=== PATIENT | female | born 1940 | race Caucasian/White ===

== ENCOUNTER 2020-08-10 10:53 | Observation (INO) | payer MEDICARE, MEDICAID ==
[2020-08-10] MEDS ORDERED: Sodium Chloride 0.9% 10 ML Syringe FLUSH PRN (10:55)
[2020-08-10 11:22] LABS: CHLORIDE,CL 99 mmol/L (98-107); SODIUM,NA 135 mmol/L (136-145)
--- NOTE | 2020-08-10 15:42 | EDM.PDOC ---
ED HPI GENERAL MEDICAL PROBLEM - General Chief Complaint: Trauma Stated Complaint: trauma, fall Time Seen by Provider: 08/10/20 10:54 Source of Information: Reports: Patient History Limitations: Reports: Other (does not remember falling) - History of Present Illness INITIAL COMMENTS - FREE TEXT/NARRATIVE: Patient brought to ER for evaluation after falling outside of local bank. Denies LOC. Has abrasion/laceration right pentecostalism. Patient says that she trips/falls reasonable frequently. No complaint other than headache and contusion on head. 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: - Past Surgical History HEENT Surgical History: Reports: Tonsillectomy GI Surgical History: Reports: Appendectomy Social & Family History - Tobacco Use Tobacco Use Status *Q: Never Tobacco User Second Hand Smoke Exposure: No - Caffeine Use Caffeine Use: Reports: Tea - Recreational Drug Use Recreational Drug Use: No Review of Systems - Review of Systems Review Of Systems: See Below Constitutional: Reports: No Symptoms Eyes: Denies: Blurred Vision, Decreased Acuity, Foreign Body Sensation, Photophobia, Tunnel Vision, Vision Change Ears: Reports: No Symptoms Nose: Reports: No Symptoms Mouth/Throat: Reports: No Symptoms Respiratory: Reports: No Symptoms Cardiovascular: Reports: No Symptoms GI/Abdominal: Reports: No Symptoms Genitourinary: Reports: No Symptoms Musculoskeletal: Reports: No Symptoms. Denies: Neck Pain Skin: Reports: Wound Neurological: Reports: Headache. Denies: Paresthesia, Seizure, Syncope, Tingling, Trouble Speaking, Change in Speech Psychiatric: Reports: No Symptoms ED EXAM, GENERAL - Physical Exam Exam: See Below Exam Limited By: No Limitations General Appearance: Alert, No Apparent Distress, Thin Eye Exam: Bilateral Eye: EOMI, PERRL Ears: Normal External Exam, Normal Canal, Hearing Grossly Normal Nose: No: Nasal Deformity, Nasal Swelling, Nasal Drainage Throat/Mouth: Normal Lips, Normal Voice Head: Other (abrasion/small laceration/hematoma right side forehead) Neck: Normal Inspection, Supple, Non-Tender, Full Range of Motion. No: Tender Lateral, Tender Midline Respiratory/Chest: No Respiratory Distress, Lungs Clear, Normal Breath Sounds, No Accessory Muscle Use, Chest Non-Tender Cardiovascular: Normal Peripheral Pulses, Regular Rate, Rhythm, No Edema, No Murmur GI/Abdominal: Normal Bowel Sounds, Soft, Non-Tender, No Distention (Female) Exam: Deferred Rectal (Female) Exam: Deferred Back Exam: No: CVA Tenderness (L), CVA Tenderness (R), Muscle Spasm, Paraspinal Tenderness, Vertebral Tenderness Extremities: Non-Tender, No Pedal Edema, Normal Capillary Refill Neurological: Alert, Oriented, No Motor/Sensory Deficits Psychiatric: Normal Affect, Normal Mood Skin Exam: Warm, Dry, Wound/Incision (right side forehead) Course - Vital Signs Last Recorded V/S: Last Vital Signs Temp 36.8 C 08/10/20 13:58 Pulse 67 08/10/20 13:58 Resp 16 08/10/20 13:58 BP 127/79 08/10/20 13:58 Pulse Ox 97 08/10/20 14:00 - Orders/Labs/Meds Orders: Active Orders 24 hr Category Date Time Status C-Spine [Cervical Spine wo Cont] [CT] Stat Exams 08/10/20 10:55 Taken Head wo Cont [CT] Stat Exams 08/10/20 10:55 Taken Sodium Chloride 0.9% [Saline Flush] Med 08/10/20 10:55 Active 10 ml FLUSH ASDIRECTED PRN Saline Lock Insert [OM.PC] Stat Oth 08/10/20 10:55 Ordered Medication Orders Sodium Chloride (Sodium Chloride 0.9% 10 Ml Syringe) 10 ml FLUSH ASDIRECTED PRN PRN Reason: Keep Vein Open Labs: Laboratory Tests 08/10/20 08/10/20 08/10/20 Range/Units 10:55 10:55 10:55 WBC 4.1 (4.0-10.2) K/uL RBC 4.30 (3.77-5.09) M/uL Hgb 12.4 (11.7-15.5) g/dL Hct 36.6 (34.0-46.0) % MCV 85.1 (84.0-98.0) fL MCH 28.8 (28.2-33.3) pg MCHC 33.9 (31.7-36.0) g/dL RDW 13.4 (11.2-14.1) % Plt Count 194 (150-350) K/uL Neut % (Auto) 51.1 (45.0-80.0) % Lymph % (Auto) 38.1 (10.0-50.0) % [place] % (Auto) 9.3 (2.0-14.0) % Eos % (Auto) 1.0 (0.0-5.0) % Baso % (Auto) 0.5 (0.0-2.0) % Neut # (Auto) 2.09 (1.40-7.00) K/uL Lymph # (Auto) 1.56 (0.50-3.50) K/uL [place] # (Auto) 0.38 (0.00-1.00) K/uL Eos # (Auto) 0.04 (0.00-0.50) K/uL Baso # (Auto) 0.02 (0.00-0.20) K/uL Sodium 135 L (136-145) mmol/L Potassium 3.4 L (3.5-5.1) mmol/L Chloride 99 (98-107) mmol/L Carbon Dioxide 27.0 (21.0-32.0) mmol/L BUN 10 (7-18) mg/dL Creatinine 0.52 (0.51-1.17) mg/dL Est Cr Clr Drug Dosing TNP Estimated GFR (MDRD) > 60 mL/min Glucose 100 H (70-99) mg/dL Calcium 8.7 (8.5-10.1) mg/dL Magnesium 1.9 (1.8-2.4) mg/dL Total Bilirubin 0.6 (0.2-1.0) mg/dL AST 21 (15-37) U/L ALT 21 (12-78) U/L Alkaline Phosphatase 82 (46-116) IU/L Total Protein 7.1 (6.4-8.2) g/dL Albumin 4.1 (3.4-5.0) g/dL Specimen Type Urinblad Urine Color Light yellow Urine Appearance Clear Urine pH 8.5 (5.0-9.0) Ur Specific [place] 1.020 (1.005-1.030) Urine Protein Negative (NEGATIVE) mg/dL Urine Glucose (UA) Negative (NEGATIVE) mg/dL Urine Ketones Trace H (NEGATIVE) mg/dL Urine Occult Blood Small H (NEGATIVE) Urine Nitrite Negative (NEGATIVE) Urine Bilirubin Negative (NEGATIVE) Urine Urobilinogen 0.2 (0.2-1.0) E.U./dL Ur Leukocyte Esterase Negative (NEGATIVE) Urine RBC 0-5 /HPF Urine WBC Not seen /HPF Ur Epithelial Cells Occasional /LPF Urine Bacteria Occasional (NONE TO FEW) /HPF Meds: Medications Generic Name Dose Route Start Last Admin Trade Name Freq PRN Reason Stop Dose Admin Sodium Chloride 10 ml 08/10/20 10:55 Sodium Chloride 0.9% 10 Ml Syringe FLUSH ASDIRECTED PRN Keep Vein Open - Re-Assessments/Exams Free Text/Narrative Re-Assessment/Exam: 08/10/20 15:42 CT and baseline labs ordered. CT of head/neck showed no acute trauma or bleed. Patient declined suture of small 5mm round laceration forehead and instead wanted it taped. Wound cleansed by nursing staff. Steri strips applied. Admitted to floor as observation patient for neuro checks. Will also have PT/OT evaluate patient given her admission of frequent trips/falls. History of breast mass suspicious for cancerous changes noted last fall. Patient so far has not had biopsy or other further investigation of mass but says she is to be following up at [facility]. Departure - Departure Time of Disposition: 14:30 Disposition: Refer to Observation Condition: Good Clinical Impression: Fall Qualifiers: Encounter type: initial encounter Qualified Code(s): W19.XXXA - Unspecified fall, initial encounter Head contusion Qualifiers: Encounter type: initial encounter Contusion of head detail: periocular area Laterality: right Qualified Code(s): S00.11XA - Contusion of right eyelid and periocular area, initial encounter Forehead laceration Qualifiers: Encounter type: initial encounter Qualified Code(s): S01.81XA - Laceration without foreign body of other part of head, initial encounter - Discharge Information *PRESCRIPTION DRUG MONITORING PROGRAM REVIEWED*: Not Applicable *COPY OF PRESCRIPTION DRUG MONITORING REPORT IN PATIENT MARIA D: Not Applicable Sepsis Event Note (ED) - Evaluation Sepsis Screening Result: No Definite Risk - Problem List & Annotations (1) Head contusion SNOMED Code(s): 401144244 Code(s): S00.93XA - CONTUSION OF UNSPECIFIED PART OF HEAD, INITIAL ENCOUNTER Status: Acute Priority: High Current Visit: Yes Onset Date: 08/10/20 Annotation/Comment:: No reported LOC. CT of head and neck negative for acute injury/changes. Admit observation for neuro checks. Qualifiers: Encounter type: initial encounter Contusion of head detail: periocular area Laterality: right Qualified Code(s): S00.11XA - Contusion of right eyelid and periocular area, initial encounter (2) Fall SNOMED Code(s): 6477157, 506603747 Code(s): W19.XXXA - UNSPECIFIED FALL, INITIAL ENCOUNTER Status: Acute Priority: High Current Visit: Yes Annotation/Comment:: Admits to frequent trips/falling. PT and OT consult. Qualifiers: Encounter type: initial encounter Qualified Code(s): W19.XXXA - Unspecified fall, initial encounter (3) Forehead laceration SNOMED Code(s): 201132075 Code(s): S01.81XA - LACERATION W/O FOREIGN BODY OF OTH PART OF HEAD, INIT ENCNTR Status: Acute Priority: Low Current Visit: Yes Annotation/Comment:: Patient declined suturing and instead wanted a bandage. Steri strips applied. Qualifiers: Encounter type: initial encounter Qualified Code(s): S01.81XA - Laceration without foreign body of other part of head, initial encounter (4) Breast mass, right SNOMED Code(s): 67671948 Code(s): N63.10 - UNSPECIFIED LUMP IN THE RIGHT BREAST, UNSPECIFIED QUADRANT Status: Chronic Priority: Medium Current Visit: Yes Annotation/Comment:: Request that case management make certain patient is being followed up appropriately by [facility] for further evaluation and biopsy. - Problem List Review Problem List Initiated/Reviewed/Updated: Yes - My Orders Last 24 Hours: My Active Orders 08/10/20 10:55 C-Spine [Cervical Spine wo Cont] [CT] Stat Head wo Cont [CT] Stat Sodium Chloride 0.9% [Saline Flush] 10 ml FLUSH ASDIRECTED PRN Saline Lock Insert [OM.PC] Stat - Assessment/Plan Admission H&P: Please use this note as an admission H&P Last 24 Hours: My Active Orders 08/10/20 10:55 C-Spine [Cervical Spine wo Cont] [CT] Stat Head wo Cont [CT] Stat Sodium Chloride 0.9% [Saline Flush] 10 ml FLUSH ASDIRECTED PRN Saline Lock Insert [OM.PC] Stat Assessment:: as above Plan: as above. If patient does well and is cleared by PT/OT anticipate discharge tomorrow.
--- NOTE | 2020-08-11 10:28 | PCM.DCSUM1 ---
Discharge Summary - Hospital Course Brief History: Patient admitted observation after falling on sidewalk yesterday. Sustained head contusion. Has no recall of fall. Diagnosis: Stroke: No - Discharge Data Discharge Date: 08/11/20 Discharge Disposition: Home, Self-Care 01 Condition: Good - Referral to Home Health Primary Care Physician: Farhana Ayala NP - Discharge Diagnosis/Problem(s) (1) Head contusion SNOMED Code(s): 264643422 ICD Code: S00.93XA - CONTUSION OF UNSPECIFIED PART OF HEAD, INITIAL ENCOUNTER Status: Acute Priority: High Current Visit: Yes Onset Date: 08/10/20 Problem Details: No reported LOC. CT of head and neck negative for acute injury/changes. Observed overnight. Normal neuro checks. Doing well. Minimal headache today. Wants to go home. Qualifiers: Encounter type: initial encounter Contusion of head detail: periocular area Laterality: right Qualified Code(s): S00.11XA - Contusion of right eyelid and periocular area, initial encounter (2) Fall SNOMED Code(s): 6017996, 532971911 ICD Code: W19.XXXA - UNSPECIFIED FALL, INITIAL ENCOUNTER Status: Acute Priority: High Current Visit: Yes Problem Details: Admits to frequent trips/falling. PT and OT consult for stregnthening and ambulation through primary provider highly recommended. Qualifiers: Encounter type: initial encounter Qualified Code(s): W19.XXXA - Unspecified fall, initial encounter (3) Forehead laceration SNOMED Code(s): 533259089 ICD Code: S01.81XA - LACERATION W/O FOREIGN BODY OF OTH PART OF HEAD, INIT ENCNTR Status: Acute Priority: Low Current Visit: Yes Problem Details: Patient declined suturing and instead wanted a bandage. Steri strips applied. Qualifiers: Encounter type: initial encounter Qualified Code(s): S01.81XA - Laceration without foreign body of other part of head, initial encounter (4) Breast mass, right SNOMED Code(s): 06030289 ICD Code: N63.10 - UNSPECIFIED LUMP IN THE RIGHT BREAST, UNSPECIFIED QUADRANT Status: Chronic Priority: Medium Current Visit: Yes Problem Details: Patient so far has not had biopsy to see if mass cancerous. Says she had to cancel appointments due to lack of transportation. Refused to take the "dirty bus" that gives rides to [facility] up to [place]. Patient indicates she is actively working on obtaining a new appointment. - Patient Summary/Data Consults: Consultations 08/10/20 15:39 Consult to Case Management/Structural Worker [CONS] Routine OT Evaluation and Treatment [CONS] Routine PT Evaluation and Treatment [CONS] Routine Hospital Course: Unremarkable hospital course. Normal neuro checks. Patient's headache improved. Refused any other medications except for Tylenol. Feels better today and wants to go home. Able to get around her room safely per nursing staff. Precautions reviewed. To follow up with [facility] next week for recheck. Recommended to patient that she get PT/OT referral from [facility] for strengthening/ADLs/walking given her self reported frequent tripping/falls. To leave steri-strips in place for a week. - Patient Instructions Diet: Usual Diet as Tolerated Activity: As Tolerated Wound/Incision Care: Keep Operative Site/Wound Site Clean and Dry Notify Provider of: Increased Pain, Nausea and/or Vomiting Other/Special Instructions: Make appointment to get rechecked at your clinic next week. Keep the steri strips dry and in place for a week while your skin is healing. If any signs of infection are noted get rechecked. Also ask for referral for Physical and Occupational Therapy so that you can get help/exercises for strengthening to improve your balance and ability to walk safely. Follow up otherwise as needed if you have problems or concerns. - Discharge Plan *PRESCRIPTION DRUG MONITORING PROGRAM REVIEWED*: Not Applicable *COPY OF PRESCRIPTION DRUG MONITORING REPORT IN PATIENT MARIA D: Not Applicable Home Medications: Home Meds Fluticasone Propionate [Flonase] 1 spray NASBOTH BID 08/10/20 [History] Ibuprofen 1 - 3 tab PO Q6HR PRN 08/10/20 [History] Multivitamin with Minerals [Multiple Vitamin] 1 tab PO DAILY 08/10/20 [History] Patient Handouts: Head Injury, Adult, Nonsutured Laceration Care - Discharge Summary/Plan Comment DC Time >30 min.: No - General Info Date of Service: 08/11/20 Admission Dx/Problem (Free Text: Fall/head trauma Subjective Update: Patient feels better. Still does not remember the actual fall itself. Recalls being seen in ER afterwards. Wants to go home. Headache much improved per patient. No new complaints. Functional Status: Reports: Pain Controlled, Tolerating Diet, Ambulating, Urinating, New Symptoms Numeric/FACES Score: 1 - Review of Systems General: Reports: No Symptoms HEENT: Reports: Headaches (mild). Denies: Visual Changes Pulmonary: Reports: No Symptoms Cardiovascular: Reports: No Symptoms Gastrointestinal: Reports: No Symptoms Genitourinary: Reports: No Symptoms Musculoskeletal: Reports: No Symptoms Skin: Reports: Other (laceration right forehead area) Neurological: Reports: Headache (mild). Denies: Confusion, Dizziness, Change in Speech, Gait Disturbance (no change from baseline) Psychiatric: Reports: No Symptoms - Patient Data Vitals - Most Recent: Last Vital Signs Temp 37.3 C 08/11/20 04:00 Pulse 68 08/11/20 04:00 Resp 16 08/11/20 04:00 BP 94/53 L 08/11/20 04:00 Pulse Ox 92 L 08/11/20 04:00 Weight - Most Recent: 59.693 kg I&O - Last 24 hours: Intake & Output 08/10/20 08/11/20 08/11/20 22:59 06:59 14:59 Intake Total 480 100 240 Output Total 100 Balance 480 0 240 Lab Results - Last 24 hrs: Laboratory Results - last 24 hr 08/10/20 08/10/20 08/10/20 Range/Units 10:55 10:55 10:55 WBC 4.1 (4.0-10.2) K/uL RBC 4.30 (3.77-5.09) M/uL Hgb 12.4 (11.7-15.5) g/dL Hct 36.6 (34.0-46.0) % MCV 85.1 (84.0-98.0) fL MCH 28.8 (28.2-33.3) pg MCHC 33.9 (31.7-36.0) g/dL RDW 13.4 (11.2-14.1) % Plt Count 194 (150-350) K/uL Neut % (Auto) 51.1 (45.0-80.0) % Lymph % (Auto) 38.1 (10.0-50.0) % [place] % (Auto) 9.3 (2.0-14.0) % Eos % (Auto) 1.0 (0.0-5.0) % Baso % (Auto) 0.5 (0.0-2.0) % Neut # (Auto) 2.09 (1.40-7.00) K/uL Lymph # (Auto) 1.56 (0.50-3.50) K/uL [place] # (Auto) 0.38 (0.00-1.00) K/uL Eos # (Auto) 0.04 (0.00-0.50) K/uL Baso # (Auto) 0.02 (0.00-0.20) K/uL Sodium 135 L (136-145) mmol/L Potassium 3.4 L (3.5-5.1) mmol/L Chloride 99 (98-107) mmol/L Carbon Dioxide 27.0 (21.0-32.0) mmol/L BUN 10 (7-18) mg/dL Creatinine 0.52 (0.51-1.17) mg/dL Est Cr Clr Drug Dosing TNP Estimated GFR (MDRD) > 60 mL/min Glucose 100 H (70-99) mg/dL Calcium 8.7 (8.5-10.1) mg/dL Magnesium 1.9 (1.8-2.4) mg/dL Total Bilirubin 0.6 (0.2-1.0) mg/dL AST 21 (15-37) U/L ALT 21 (12-78) U/L Alkaline Phosphatase 82 (46-116) IU/L Total Protein 7.1 (6.4-8.2) g/dL Albumin 4.1 (3.4-5.0) g/dL Specimen Type Urinblad Urine Color Light yellow Urine Appearance Clear Urine pH 8.5 (5.0-9.0) Ur Specific [place] 1.020 (1.005-1.030) Urine Protein Negative (NEGATIVE) mg/dL Urine Glucose (UA) Negative (NEGATIVE) mg/dL Urine Ketones Trace H (NEGATIVE) mg/dL Urine Occult Blood Small H (NEGATIVE) Urine Nitrite Negative (NEGATIVE) Urine Bilirubin Negative (NEGATIVE) Urine Urobilinogen 0.2 (0.2-1.0) E.U./dL Ur Leukocyte Esterase Negative (NEGATIVE) Urine RBC 0-5 /HPF Urine WBC Not seen /HPF Ur Epithelial Cells Occasional /LPF Urine Bacteria Occasional (NONE TO FEW) /HPF Med Orders - Current: Current Medications Sodium Chloride (Sodium Chloride 0.9% 10 Ml Syringe) 10 ml FLUSH ASDIRECTED PRN PRN Reason: Keep Vein Open - Exam General: Reports: Alert, Oriented, Cooperative, No Acute Distress HEENT: Reports: Pupils Equal, Pupils Reactive, EOMI, Mucous Membr. Moist/[place] Neck: Reports: Supple Lungs: Reports: Clear to Auscultation, Normal Respiratory Effort Cardiovascular: Reports: Regular Rate, Regular Rhythm GI/Abdominal Exam: Normal Bowel Sounds, Soft, Non-Tender, No Distention (Female) Exam: Deferred Rectal (Female) Exam: Deferred Back Exam: Denies: CVA Tenderness (L), CVA Tenderness (R), Muscle Spasm, Paraspinal Tenderness, Vertebral Tenderness Extremities: Non-Tender, Normal Capillary Refill Skin: Reports: Warm, Other (steri strips) Wound/Incisions: Reports: No Drainage Neurological: Reports: No New Focal Deficit, Strength Equal Bilateral, Sensation Intact Psy/Mental Status: Reports: Alert, Normal Affect, Normal Mood
== END 2020-08-11 10:55 | disposition home or self-care (01) ==
LOC: LL.ED 10:53 → LL.MS 12:30
PROVIDERS: ADMIT Emergency Medicine; ATTEND Emergency Medicine
DX: S01.81XA Laceration without foreign body of other part of head, initial encounter (principal); N63.10 Unspecified lump in the right breast, unspecified quadrant; R40.4 Transient alteration of awareness; M50.30 Other cervical disc degeneration, unspecified cervical region; Z88.0 Allergy status to penicillin; Z98.890 Other specified postprocedural states; W19.XXXA Unspecified fall, initial encounter
CPT/HCPCS: 36415; 70450; 72125; 80053; 81001; 83735; 85025; 99217; 99219; 99285-25; G0378

== ENCOUNTER 2021-01-04 12:44 | Emergency (ER) | payer MEDICARE, MEDICAID ==
--- NOTE | 2021-01-04 13:00 | EDM.PDOC ---
ED HPI GENERAL MEDICAL PROBLEM - General Chief Complaint: Lower Extremity Injury/Pain Stated Complaint: R hip pain Time Seen by Provider: 01/04/21 12:44 Source of Information: Reports: Patient History Limitations: Reports: No Limitations - History of Present Illness INITIAL COMMENTS - FREE TEXT/NARRATIVE: Patient complains of right si joint/buttock pain. 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 Started to have pain in the right SI joint area. She has not taken anything for it. Has been able to continue to drive, take care of herself at her one level apartment. No falls, no numbness and no saddle anesthesia. She is tired of the pain, but has not taken any mediation for it and attempted to be seen at the clinic abut they could not see her today so she decided to come to the ED. She drove herself here. She is concerned that her hip is dislocated Onset: Other (one month ago) Duration: Constant Location: Reports: Back, Pelvis Quality: Reports: Ache Associated Symptoms: Reports: No Other Symptoms Right Hip Pain Score (Numeric/FACES): 6 - Related Data Allergies Allergy/AdvReac Type Severity Reaction Status Date / Time Penicillins Allergy Other Verified 01/04/21 12:48 Home Meds: Home Meds Fluticasone Propionate [Flonase] 1 spray NASBOTH BID 08/10/20 [History] Ibuprofen 1 - 3 tab PO Q6HR PRN 08/10/20 [History] Multivitamin with Minerals [Multiple Vitamin] 1 tab PO DAILY 08/10/20 [History] Past Medical History HEENT History: Reports: Impaired 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 Denies: Chills, Diaphoresis, Fever Eyes: Reports: No Symptoms. Denies: Inflammation, Tunnel Vision, Vision Change, Contact Lenses Ears: Reports: No Symptoms. Denies: Dizziness Nose: Reports: No Symptoms. Denies: Clots, Congestion, Epistaxis Mouth/Throat: Reports: No Symptoms Respiratory: Reports: No Symptoms Cardiovascular: Reports: No Symptoms GI/Abdominal: Reports: No Symptoms Genitourinary: Reports: No Symptoms Musculoskeletal: Reports: Back Pain Skin: Reports: No Symptoms Neurological: Reports: No Symptoms ED EXAM, GENERAL - Physical Exam Exam: See Below Exam Limited By: No Limitations General Appearance: Alert, WD/WN, No Apparent Distress Ears: Normal External Exam Nose: Normal Inspection, Normal Mucosa Throat/Mouth: Normal Inspection, Normal Lips, Normal Teeth, Normal Gums, Normal Voice Head: Atraumatic, Normocephalic Neck: Normal Inspection, Supple, Non-Tender Respiratory/Chest: No Respiratory Distress, Lungs Clear, Normal Breath Sounds, No Accessory Muscle Use, Chest Non-Tender Cardiovascular: Normal Peripheral Pulses, Regular Rate, Rhythm, No Murmur Back Exam: Other (Pain to palpation of the right si joint, minimal tenderness to palpation of the greater trochanter on the right. Normal strength of the lower extermities, no pain to internal or external rotation of the right hip. No other pain to palpation no lesions or rashes on the back ) Course - Vital Signs Last Recorded V/S: Last Vital Signs Temp 36.1 C 01/04/21 12:58 Pulse 74 01/04/21 12:58 Resp 18 01/04/21 12:58 BP 148/84 H 01/04/21 12:58 Pulse Ox 99 01/04/21 12:58 - Orders/Labs/Meds Orders: Active Orders 24 hr Category Date Time Status Lumbar Spine 2 or 3V [CR] Stat Exams 01/04/21 12:52 Ordered Pelvis 1V or 2V [CR] Stat Exams 01/04/21 12:52 Ordered - Radiology Interpretation Free Text/Narrative:: no acute on the x-ray, preliminary read only - Re-Assessments/Exams Free Text/Narrative Re-Assessment/Exam: 01/04/21 13:06 will get x-ray for pelvis and lumbar spine. 01/04/21 14:10 offered steroids, ndsaids to patient. Declined. Would like a physical therapy script and will take motrin, follow up with PCP Departure - Departure Time of Disposition: 14:11 Disposition: Home, Self-Care 01 Clinical Impression: Sciatica - Discharge Information *PRESCRIPTION DRUG MONITORING PROGRAM REVIEWED*: Not Applicable *COPY OF PRESCRIPTION DRUG MONITORING REPORT IN PATIENT MARIA D: Not Applicable Instructions: Sciatica, Eaxx-[id number] Referrals: Farhana Ayala NP [Primary Care Provider] - Forms: ED Department Discharge Additional Instructions: Use the Motrin as needed for pain . You have a prescription for physical therapy in the system. [facility] to set up an appointment. Follow up with PCP. Sepsis Event Note (ED) - Focused Exam Vital Signs: Vital Signs Temp Pulse Resp BP Pulse Ox 01/04/21 12:58 36.1 C 74 18 148/84 H 99 - My Orders Last 24 Hours: My Active Orders 01/04/21 12:52 Lumbar Spine 2 or 3V [CR] Stat Pelvis 1V or 2V [CR] Stat - Assessment/Plan Last 24 Hours: My Active Orders 01/04/21 12:52 Lumbar Spine 2 or 3V [CR] Stat Pelvis 1V or 2V [CR] Stat
== END 2021-01-04 14:30 | disposition home or self-care (01) ==
LOC: LL.ED 12:44
DX: M54.41 Lumbago with sciatica, right side (principal); Z88.0 Allergy status to penicillin
CPT/HCPCS: 72100; 72170; 99283; 99283-25

== ENCOUNTER 2021-03-22 15:07 | Emergency (ER) | payer MEDICARE, MEDICAID ==
[2021-03-22] MEDS ORDERED: Ondansetron 4 MG/2 ML SDV IV ONE (15:10)
[2021-03-22] MEDS ORDERED: fentaNYL 50 MCG/ML SDV IVPUSH ONE (15:10)
[2021-03-22] MEDS ORDERED: Sodium Chloride 0.9% 10 ML Syringe FLUSH PRN (15:39)
[2021-03-22 15:46] LABS: CHLORIDE,CL 96 mmol/L (98-107); SODIUM,NA 132 mmol/L (136-145)
[2021-03-22 15:50] LABS: ANION GAP 12.4 meq/L (7-15)
--- NOTE | 2021-03-22 16:06 | EDM.PDOC ---
ED HPI GENERAL MEDICAL PROBLEM - General Chief Complaint: Lower Extremity Injury/Pain Stated Complaint: fall with hip injury Time Seen by Provider: 03/22/21 15:07 Source of Information: Reports: Patient, EMS History Limitations: Reports: No Limitations - History of Present Illness INITIAL COMMENTS - FREE TEXT/NARRATIVE: Patient comes emergency department today by ambulance from home with concerns of a fall and a angulation of the right femur. This patient is well-known to the hospital. She has a history of paranoid schizophrenia. She has some type of cancer that she is unaware of. Last night when she was at home she was walking and she lost control of her leg she reports fell landing on her right hip. She had severe pain to her right proximal femur. She heard a large crunch. She was unable to get to the phone and pretty much sat on the couch all night until someone was able to come to the house and check on her. Her her fall she relates was mechanical. She did not hit her head. She has no loss of conscious. She has no chest pain no shortness of breath or difficulty breathing. No fever no chills. No abdominal pain no nausea or vomiting. She really denies any pain although her leg she is unable to move the right lower extremity as it is quite angulated and distorted. She denies any paresthesias to her right lower extremity. She denies any back or pelvis pain. She denies any hematuria dysuria urinary frequency. No black tarry stools. No Covid exposure. right hip Pain Score (Numeric/FACES): 8 - Related Data Allergies Allergy/AdvReac Type Severity Reaction Status Date / Time Penicillins Allergy Other Verified 03/22/21 15:09 Home Meds: Home Meds Fluticasone Propionate [Flonase] 1 spray NASBOTH BID PRN 08/10/20 [History] Ibuprofen 1 - 3 tab PO Q6HR PRN 08/10/20 [History] Multivitamin with Minerals [Multiple Vitamin] 1 tab PO DAILY 08/10/20 [History] HYDROmorphone [Dilaudid] 2 mg PO DAILY PRN 03/22/21 [History] Letrozole 2.5 mg PO DAILY 03/22/21 [History] Past Medical History HEENT History: Reports: Impaired Vision [employer] MEMBER History: Reports: - Past Surgical History HEENT Surgical History: Reports: Tonsillectomy GI Surgical History: Reports: Appendectomy Social & Family History - Caffeine Use Caffeine Use: Reports: Coffee Review of Systems - Review of Systems Review Of Systems: Comprehensive ROS is negative, except as noted in HPI. ED EXAM, GENERAL - Physical Exam Exam: See Below Exam Limited By: No Limitations General Appearance: Alert, WD/WN, Thin, Cachetic, Other (She is in rather poor hygienic care.) Eye Exam: Bilateral Eye: EOMI, PERRL Ears: Normal External Exam Nose: Normal Inspection Throat/Mouth: No: Normal Teeth (She has multiple teeth missing within the mouth. Multiple broken teeth. Nothing acutely infectious or concerning.) Head: Atraumatic, Normocephalic Neck: Normal Inspection, Supple, Non-Tender Respiratory/Chest: No Respiratory Distress, Lungs Clear, Normal Breath Sounds, No Accessory Muscle Use, Chest Non-Tender Cardiovascular: Normal Peripheral Pulses, Regular Rate, Rhythm Peripheral Pulses: 2+: Radial (L), Radial (R), Posterior Tibial (L), Posterior Tibial (R), Dorsalis Pedis (L), Dorsalis Pedis (R) GI/Abdominal: Normal Bowel Sounds, Soft, Non-Tender (Female) Exam: Deferred Rectal (Female) Exam: Deferred Back Exam: Normal Inspection, Full Range of Motion. No: Paraspinal Tenderness, Vertebral Tenderness Extremities: Normal Capillary Refill. No: Normal Inspection (On the proximal femur there is a rather large deformity. And her knee is twisted in a varus motion at a 90 degree angle as well as her proximal femur. Under her left leg. CMS is intact appropriately. There is no breaks in the skin.) Neurological: Alert, Oriented, No Motor/Sensory Deficits Psychiatric: Normal Affect, Normal Mood Skin Exam: Warm, Dry, Intact, Normal Color, No Rash Course - Vital Signs Last Recorded V/S: Last Vital Signs Temp 97.6 F 03/22/21 16:28 Pulse 93 03/22/21 16:28 Resp 18 03/22/21 16:28 BP 137/97 H 03/22/21 16:28 Pulse Ox 92 L 03/22/21 16:28 - Orders/Labs/Meds Orders: Active Orders 24 hr Category Date Time Status Thapa Catheter Insertion [Insert Urinary Catheter] [OM. Care 03/22/21 16:00 Ordered PC] Q24H Hip Min 2V or 3V w Pelvis Rt [CR] Stat Exams 03/22/21 15:10 Taken UA RFX VIKASH AND CULT IF INDIC [URIN] Stat Lab 03/22/21 15:09 Ordered Saline Lock Insert [OM.PC] Routine Oth 03/22/21 15:39 Ordered Labs: Laboratory Tests 03/22/21 03/22/21 03/22/21 Range/Units 15:20 15:20 15:20 WBC 10.9 H (4.0-10.2) K/uL RBC 4.58 (3.77-5.09) M/uL Hgb 13.4 (11.7-15.5) g/dL Hct 38.1 (34.0-46.0) % MCV 83.2 L (84.0-98.0) fL MCH 29.3 (28.2-33.3) pg MCHC 35.2 (31.7-36.0) g/dL RDW 13.6 (11.2-14.1) % Plt Count 280 D (150-350) K/uL Neut % (Auto) 83.3 H (45.0-80.0) % Lymph % (Auto) 7.8 L (10.0-50.0) % Wagoner % (Auto) 8.6 (2.0-14.0) % Eos % (Auto) 0.1 (0.0-5.0) % Baso % (Auto) 0.2 (0.0-2.0) % Neut # (Auto) 9.07 H (1.40-7.00) K/uL Lymph # (Auto) 0.85 (0.50-3.50) K/uL Wagoner # (Auto) 0.94 (0.00-1.00) K/uL Eos # (Auto) 0.01 (0.00-0.50) K/uL Baso # (Auto) 0.02 (0.00-0.20) K/uL PT 10.7 (9.5-12.0) SEC INR 1.1 Sodium 132 L (136-145) mmol/L Potassium 2.9 L* (3.5-5.1) mmol/L Chloride 96 L (98-107) mmol/L Carbon Dioxide 26.5 (21.0-32.0) mmol/L Anion Gap 12.4 (7-15) meq/L BUN 16 (7-18) mg/dL Creatinine 0.51 (0.51-1.17) mg/dL Est Cr Clr Drug Dosing 67.26 mL/min Estimated GFR (MDRD) > 60 mL/min Glucose 122 H (70-99) mg/dL Lactic Acid (0.4-2.0) mmol/L Calcium 9.0 (8.5-10.1) mg/dL Magnesium (1.8-2.4) mg/dL Total Bilirubin 0.8 (0.2-1.0) mg/dL AST 43 H (15-37) U/L ALT 19 (12-78) U/L Alkaline Phosphatase 124 H (46-116) IU/L Creatine Kinase 381 H (26-308) U/L Total Protein 6.9 (6.4-8.2) g/dL Albumin 4.0 (3.4-5.0) g/dL 03/22/21 03/22/21 Range/Units 15:20 15:20 WBC (4.0-10.2) K/uL RBC (3.77-5.09) M/uL Hgb (11.7-15.5) g/dL Hct (34.0-46.0) % MCV (84.0-98.0) fL MCH (28.2-33.3) pg MCHC (31.7-36.0) g/dL RDW (11.2-14.1) % Plt Count (150-350) K/uL Neut % (Auto) (45.0-80.0) % Lymph % (Auto) (10.0-50.0) % Wagoner % (Auto) (2.0-14.0) % Eos % (Auto) (0.0-5.0) % Baso % (Auto) (0.0-2.0) % Neut # (Auto) (1.40-7.00) K/uL Lymph # (Auto) (0.50-3.50) K/uL Wagoner # (Auto) (0.00-1.00) K/uL Eos # (Auto) (0.00-0.50) K/uL Baso # (Auto) (0.00-0.20) K/uL PT (9.5-12.0) SEC INR Sodium (136-145) mmol/L Potassium (3.5-5.1) mmol/L Chloride (98-107) mmol/L Carbon Dioxide (21.0-32.0) mmol/L Anion Gap (7-15) meq/L BUN (7-18) mg/dL Creatinine (0.51-1.17) mg/dL Est Cr Clr Drug Dosing mL/min Estimated GFR (MDRD) mL/min Glucose (70-99) mg/dL Lactic Acid 0.6 (0.4-2.0) mmol/L Calcium (8.5-10.1) mg/dL Magnesium 1.7 L (1.8-2.4) mg/dL Total Bilirubin (0.2-1.0) mg/dL AST (15-37) U/L ALT (12-78) U/L Alkaline Phosphatase (46-116) IU/L Creatine Kinase (26-308) U/L Total Protein (6.4-8.2) g/dL Albumin (3.4-5.0) g/dL Meds: Medications Discontinued Medications Generic Name Dose Route Start Last Admin Trade Name Freq PRN Reason Stop Dose Admin Fentanyl 50 mcg 03/22/21 15:10 03/22/21 15:39 Fentanyl 50 Mcg/Ml Sdv IVPUSH 03/22/21 15:11 50 mcg ONETIME ONE Administration Sodium Chloride 1,000 mls @ 125 mls/hr 03/22/21 17:45 03/22/21 18:20 Normal Saline IV 125 mls/hr ASDIRECTED BHAVYA Administration Ondansetron HCl 4 mg 03/22/21 15:10 03/22/21 15:47 Ondansetron 4 Mg/2 Ml Sdv IV 03/22/21 15:11 4 mg ONETIME ONE Administration Potassium Bicarbonate 20 meq 03/22/21 16:00 03/22/21 20:37 Potassium Bicarbonate/Cit Ac 20 Meq Effervescent Tab PO 03/22/21 20:01 20 meq Q2H BHAVYA Administration Sodium Chloride 10 ml 03/22/21 15:39 03/22/21 15:48 Sodium Chloride 0.9% 10 Ml Syringe FLUSH 10 ml ASDIRECTED PRN Administration Keep Vein Open - Radiology Interpretation Free Text/Narrative:: X-ray of the right femur per radiology shows there is a pathologic fracture through the proximal shaft of the right femur with approximately 90 degrees of varus angulation. There is no dislocation. Underlying lytic lesion at the fracture site consistent with metastatic disease is noted. No other fractures identified. Reviewing her recent MRI she has multiple bone metastatic/lesions of the proximal femur as well as the sacrum and L5. - Re-Assessments/Exams Free Text/Narrative Re-Assessment/Exam: Upon presentation the patient clearly has some type of proximal femur fracture that is quite angulated. Her CMS is intact appropriately. She really denies much for pain but she was given some prophylactic fentanyl for pain. Laboratory evaluation with a CBC of 10.9, hemoglobin 13.4, platelets 280. Coagulation studies are normal. CMP with a sodium of 132, potassium 2.9, chloride 96 normal creatinine function. Lactic acid is normal at 0.6. Magnesium 1.7 CPK is 381 minimally elevated. This patient has rather impressive pathologic fracture with angulation and distortion of the right proximal femur. CMS is intact appropriately. I spoke with Dr. Cordova at [facility] and he does not want any intervention at this time with this pathologic fracture. I then spoke with Dr. Pruett HPI ER COURSE findings and concerns were relayed to him. His questions were answered and he was comfortable with this plan. The patient is somewhat clueless due to her past medical history. She clearly h as an aggressive breast cancer that she has chosen not to do any treatment for. There was a known tumor of the proximal right femur which is probably the cause of her pathologic fracture today. Although she did have a fall it is probably finish the fracture off. She does not want any treatment for her aggressive breast cancer. Although she is unable to go home as she is requested with this rather impressive angulation of the right proximal femur with appropriate CMS. She does consent to being transferred to [facility] in [place] for orthopedic evaluation and most likely surgery. She will be transported by ALS ambulance to [facility]. 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 Qualifiers: Encounter type: initial encounter Laterality: right Qualified Code(s): M84.551A - Pathological fracture in neoplastic disease, right femur, initial encounter for fracture - Discharge Information Referrals: Farhana Ayala [facility] [Primary Care Provider] - Forms: ED Department Discharge, Interfacility Transfer [facility] Sepsis Event Note (ED) - Focused Exam Vital Signs: Vital Signs Temp Pulse Resp BP Pulse Ox 03/22/21 16:28 97.6 F 93 18 137/97 H 92 L 03/22/21 15:55 98 F 94 18 138/75 98 03/22/21 15:30 90 20 112/65 95 03/22/21 15:09 98.6 F 100 20 139/79 98 - Problem List & Annotations (1) Hypomagnesemia SNOMED Code(s): 760079459 Code(s): E83.42 - HYPOMAGNESEMIA Status: Acute (2) Schizophrenia SNOMED Code(s): 97019251 Code(s): F20.9 - SCHIZOPHRENIA, UNSPECIFIED Status: Acute (3) 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 SNOMED Code(s): 725626805 Code(s): M84.553A - PATH FRACTURE IN NEOPLASTIC DISEASE, UNSP FEMUR, INIT Status: Acute Qualifiers: Encounter type: initial encounter Laterality: right Qualified Code(s): M84.551A - Pathological fracture in neoplastic disease, right femur, initial encounter for fracture (4) Hypokalemia SNOMED Code(s): 42588290 Code(s): E87.6 - HYPOKALEMIA Status: Acute (5) 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 SNOMED Code(s): 494610016 Code(s): C50.911 - MALIGNANT NEOPLASM OF UNSP SITE OF RIGHT FEMALE BREAST Status: Acute (6) Metastatic cancer to bone Status: Acute (7) Elevated CPK SNOMED Code(s): 918998647 Code(s): R74.8 - ABNORMAL LEVELS OF OTHER SERUM ENZYMES Status: Acute - Problem List Review Problem List Initiated/Reviewed/Updated: Yes - My Orders Last 24 Hours: My Active Orders 03/22/21 15:09 UA RFX VIKASH AND CULT IF INDIC [URIN] Stat 03/22/21 15:10 Hip Min 2V or 3V w Pelvis Rt [CR] Stat 03/22/21 15:39 Saline Lock Insert [OM.PC] Routine 03/22/21 16:00 Thapa Catheter Insertion [Insert Urinary Catheter] [OM.PC] Q24H - Assessment/Plan Last 24 Hours: My Active Orders 03/22/21 15:09 UA RFX VIKASH AND CULT IF INDIC [URIN] Stat 03/22/21 15:10 Hip Min 2V or 3V w Pelvis Rt [CR] Stat 03/22/21 15:39 Saline Lock Insert [OM.PC] Routine 03/22/21 16:00 Thapa Catheter Insertion [Insert Urinary Catheter] [OM.PC] Q24H
[2021-03-22] MEDS: Potassium Bicarbonate/Cit Ac 20 MEQ Effervescent Tab PO SCH ×3 (16:14→20:37)
[2021-03-22] MEDS ORDERED: Sodium Chloride 0.9% 1,000 ML IV SCH (17:45)
== END 2021-03-22 20:30 ==
LOC: LL.ED 15:07
DX: M84.551A Pathological fracture in neoplastic disease, right femur, initial encounter for fracture (principal); C50.911 Malignant neoplasm of unspecified site of right female breast; C79.51 Secondary malignant neoplasm of bone; R74.8 Abnormal levels of other serum enzymes; E87.6 Hypokalemia; E83.42 Hypomagnesemia; Z88.0 Allergy status to penicillin
CPT/HCPCS: 36415; 80053; 82550; 83605; 83735; 85025; 85610; 96374; 96375; 99284; 99285-25; A9270-GY; J2405; J3010; J7030

== ENCOUNTER 2021-07-09 11:45 | Inpatient (IN) | payer MEDICARE, MEDICAID ==
[2021-07-09 12:36] LABS: ANION GAP 12.8 meq/L (7-15); CHLORIDE,CL 94 mmol/L (98-107); SODIUM,NA 132 mmol/L (136-145)
[2021-07-09] MEDS ORDERED: Fluticasone Propionate Nasal Spray 16 GM Bottle NASBOTH PRN (13:41)
[2021-07-09] MEDS ORDERED: Non-Formulary Medication 1 Each (Menthol [Biofreeze] 118 ML Gel..Ml.) TOP PRN (13:41)
[2021-07-09] MEDS ORDERED: Acetaminophen 325 MG Tab PO PRN (14:00)
[2021-07-09] MEDS ORDERED: Ibuprofen 200 MG Tab PO PRN ×2 (14:09→15:27)
[2021-07-10] MEDS ORDERED: Multivitamin Tab PO SCH (08:00)
[2021-07-10] MEDS ORDERED: Sulfamethoxazole/Trimethoprim 800-160 MG Tab PO ONE (10:35)
== END 2021-07-10 13:25 | DRG 951 ==
LOC: LL.ED 11:45 → LL.MS 13:30 → UNDOADMIN 13:30
PROVIDERS: ADMIT Emergency Medicine; ATTEND Emergency Medicine
DX: R53.1 Weakness (principal); Z51.5 Encounter for palliative care; N30.00 Acute cystitis without hematuria; C50.919 Malignant neoplasm of unspecified site of unspecified female breast; H54.7 Unspecified visual loss; Z74.09 Other reduced mobility; F20.9 Schizophrenia, unspecified; M19.90 Unspecified osteoarthritis, unspecified site; C79.51 Secondary malignant neoplasm of bone; Z88.0 Allergy status to penicillin; I10 Essential (primary) hypertension; K59.09 Other constipation; W18.30XA Fall on same level, unspecified, initial encounter; Y92.009 Unspecified place in unspecified non-institutional (private) residence as the place of occurrence of the external cause; Z79.899 Other long term (current) drug therapy; Z79.1 Long term (current) use of non-steroidal anti-inflammatories (NSAID); Z97.3 Presence of spectacles and contact lenses; Z97.2 Presence of dental prosthetic device (complete) (partial); Z87.81 Personal history of (healed) traumatic fracture; Z85.830 Personal history of malignant neoplasm of bone; Z90.89 Acquired absence of other organs; Z90.49 Acquired absence of other specified parts of digestive tract
CPT/HCPCS: 36415; 80053; 81001; 85025; 87086; 87186; 99284; A9270-GY